=== PATIENT | female | born 1955 | race Caucasian/White ===

== ENCOUNTER → 2016-10-31 16:54 | Outpatient (CLI) | payer MEDICARE ==
[2016-01-27 12:26] VITALS: BMI 29.0
[~2016-10-31 16:54] MED LIST: CEFTIN250 MG PO; COREG 3.1253.125 MG PO; GLIPIZIDE10 MG PO; GLUCOPHAGE1000 MG PO; GLUCOTROL 5 MG T5 MG PO; HYDROCODONE-APA1 TAB PO; NEURONTIN 300300 MG PO; PAXIL20 MG PO; PLAVIX75 MG PO; PLENDIL5 MG PO; PRAVACHOL40 MG PO; PRINIVIL20 MG PO; ROBAXIN500 MG PO; SINEQUAN100 MG PO; TRICOR145 MG PO
== END | disposition home or self-care (01) ==
LOC: D.MAMMO 14:15
DX: Z12.31 Encounter for screening mammogram for malignant neoplasm of breast (principal)

== ENCOUNTER → 2017-04-26 09:34 | Outpatient (CLI) | payer MEDICARE ==
[2016-01-27 12:26] VITALS: BMI 29.0
== END | disposition home or self-care (01) ==
LOC: D.MRI 09:34
DX: L03.116 Cellulitis of left lower limb (principal)

== ENCOUNTER 2017-04-30 11:18 | Inpatient (IN) | payer MEDICARE ==
[~2017-04-30] VITALS: Ht 167.6 cm; Wt 78.2 kg
--- NOTE | 2017-04-30 11:50 | NUR ---
PT RECIEVED TO ROOM 2227 VIA WHEELCHAIR PER DIRECT ADMISSION FROM DR MADRIGAL'S OFFICE. PT AWAKE AND ALERT ORIENTED X 3 DRESSING NOTED TO 2ND DIGIT RIGHT FOOT PIV SITED TO LEFT FORARM 20 GA X 1 STICK SALINE LOCKED TOLERATED WELL.
[2017-04-30] MEDS ORDERED: JANUVIA25 MG PO (11:51)
[2017-04-30 11:59] VITALS: BP 152/79; Ht 167.6 cm; Wt 78.2 kg
[2017-04-30] MEDS ORDERED: TRULICITY0.75 MG/0. SC (12:44)
[2017-04-30] MEDS ORDERED: INVOKANA100 MG PO (12:44)
[2017-04-30 13:42] LABS: BASOPHILS 0.6 % (0-2); EOSINOPHILS 2.7 % (0-7); HEMATOCRIT 43.6 % (36.0-48.0); HEMOGLOBIN 15.3 g/dL (12-16); IMMATURE GRANULOCYTES 0.2 % (0-5); LYMPHOCYTES 22.4 % (15-50); MCH 31.5 pg (26.0-34.0); MCHC 35.1 g/dL (31.0-37.0); MCV 89.9 fL (80.0-100.0); MEAN PLATELET VOLUME 9.7 fL (7.4-10.4); MONOCYTES 6.8 % (2-11); NEUTROPHILS 67.3 % (40-80); PLATELET COUNT 258 10x3/uL (130-400); RBC 4.85 10x6/uL (4.00-5.40); RDW 11.9 % (11.5-14.5)
[2017-04-30 14:10] LABS: ALBUMIN 4.1 g/dL (3.4-5.0); ANION GAP 14.4 mmol/L (8-16); BILIRUBIN - TOTAL 0.4 mg/dL (0.2-1.3); CALCIUM 9.9 mg/dL (8.5-10.1); CARBON DIOXIDE 27.8 mmol/L (21.0-32.0); POTASSIUM - SERUM 4.2 mmol/L (3.5-5.1)
--- NOTE | 2017-04-30 14:39 | NUR ---
PT LEFT SIDE LYING IN BED EYES CLOSED RESPS EVENA ND UNLABORED NO DISTRESS NOTED.
[2017-04-30 16:42] VITALS: BP 152/85
--- NOTE | 2017-04-30 18:20 | NUR ---
PT TOOK NORCO PER ORDER EARLIER FOR PAIN CONTROL EXPRESSED PAIN RELEIF ALSO WOUND CULTURE OBTAINED AND NEW DRESSING APPLIED TO DIABETIC ULCER TO 2ND DIGIT LEFT FOOT
[2017-04-30 20:00] VITALS: BP 164/83
[2017-05-01] VITALS: BP 124/64
--- NOTE | 2017-05-01 00:40 | NUR ---
PATIENT IS RESTING QUIETLY WITH EYES CLOSED. NO SIGNS OF DISTRESS NOTED. BED IN LOWEST POSITION, CALL LIGHT IN REACH. BED RAILS UP X'S 2.
[2017-05-01 04:00] VITALS: BP 147/73
[2017-05-01 06:11] LABS: BASOPHILS 0.4 % (0-2); EOSINOPHILS 2.8 % (0-7); HEMATOCRIT 43.1 % (36.0-48.0); IMMATURE GRANULOCYTES 0.1 % (0-5); LYMPHOCYTES 29.2 % (15-50); MCH 31.2 pg (26.0-34.0); MCHC 34.8 g/dL (31.0-37.0); MCV 89.6 fL (80.0-100.0); MEAN PLATELET VOLUME 10.4 fL (7.4-10.4); MONOCYTES 9.2 % (2-11); NEUTROPHILS 58.3 % (40-80); PLATELET COUNT 251 10x3/uL (130-400); RBC 4.81 10x6/uL (4.00-5.40); RDW 12.1 % (11.5-14.5); WBC 8.1 10x3/uL (4.8-10.8)
[2017-05-01 06:38] LABS: CALCIUM 9.8 mg/dL (8.5-10.1); CARBON DIOXIDE 26.4 mmol/L (21.0-32.0); CREATININE - SERUM 0.9 mg/dL (0.6-1.3); POTASSIUM - SERUM 4.4 mmol/L (3.5-5.1)
--- NOTE | 2017-05-01 08:15 | NUR ---
ASSESSMENT PER FLOW SHEET.PT WITHOUT DISTRESS. DRESSING TO LEFT FOOT IS COMING OFF. SECOND TOE ON LEFT FOOT IS RED WITH SMALL SCABBED AREA NOTED TO OUTER TOE.SITE WITHOUT DRAINAGE.DRESSING REPLACED USING NON STIICK PAD SECURED WITH TAPE.MONITOR FOR NEEDS
[2017-05-01 08:54] VITALS: BP 146/81
[2017-05-01 11:55] VITALS: BP 160/82
[2017-05-01 15:48] VITALS: BP 107/58
--- NOTE | 2017-05-01 18:03 | NUR ---
DENIES NEEDS ND REMAINS WITHOUT CHANGE. CONT PLAN OF CARE
--- NOTE | 2017-05-01 19:50 | NUR ---
REPORT RECEIVED FROM CREW LEADER GLUING NURSE. CALL LIGHT IN REACH.
[2017-05-01 20:00] VITALS: BP 125/66
--- NOTE | 2017-05-01 20:50 | NUR ---
ASSESSMENT COMPLETED. PM MEDS ADMINISTERED WITH NORCO AND ROBAXIN. SCDs APPLIED TO BLE. IV TUBING TAGGED WITH STICKER. [place] HAT PLACED IN BR. FSBS 225. 12 UNITS INSULIN SUBQ TO RIGHT ARM. WAITING ON DOXEPIN FROM PHARMACY. CALL LIGHT IN REACH. WILL CONTINUE WITH PLAN OF CARE.
--- NOTE | 2017-05-01 21:28 | NUR ---
DOXEPIN 50 MG PO. CALL LIGHT IN REACH.
--- NOTE | 2017-05-01 23:29 | NUR ---
NO NEEDS VOICED AT THIS TIME. CALL LIGHT IN REACH.
[2017-05-02] VITALS: BP 118/66
--- NOTE | 2017-05-02 00:20 | NUR ---
VSS. CALL LIGHT IN REACH.
--- NOTE | 2017-05-02 02:00 | NUR ---
PT IN BED WITH NO DISTRESS. RESPIRATIONS EVEN AND UNLABORED. SIDE RAILS X 2. BED LOW. CALL LIGHT IN REACH.
--- NOTE | 2017-05-02 02:15 | NUR ---
TEFLARO IVPB PER ORDER. CALL LIGHT IN REACH.
[2017-05-02 04:00] VITALS: BP 137/70
--- NOTE | 2017-05-02 04:28 | NUR ---
WAS GOING TO GIVE PAIN MED BUT PATIENT IS BACK RESTING WITH EYES CLOSED. RESP EVEN AND UNLABORED. WILL GIVE WHEN SHE WAKES UP.
[2017-05-02 05:31] LABS: BASOPHILS 0.5 % (0-2); EOSINOPHILS 3.8 % (0-7); HEMATOCRIT 42.3 % (36.0-48.0); HEMOGLOBIN 14.5 g/dL (12-16); IMMATURE GRANULOCYTES 0.2 % (0-5); LYMPHOCYTES 31.1 % (15-50); MCH 31.1 pg (26.0-34.0); MCHC 34.3 g/dL (31.0-37.0); MCV 90.8 fL (80.0-100.0); MEAN PLATELET VOLUME 9.9 fL (7.4-10.4); MONOCYTES 7.6 % (2-11); NEUTROPHILS 56.8 % (40-80); PLATELET COUNT 266 10x3/uL (130-400); RBC 4.66 10x6/uL (4.00-5.40); RDW 12.2 % (11.5-14.5); WBC 6.6 10x3/uL (4.8-10.8)
--- NOTE | 2017-05-02 06:20 | NUR ---
NO CHANGES IN INITIAL ASSESSMENT. CALL LIGHT IN REACH. SCDs TO BLE. WILL CONTINUE WITH PLAN OF CARE.
[2017-05-02 06:26] LABS: ANION GAP 15.8 mmol/L (8-16); CALCIUM 9.2 mg/dL (8.5-10.1); CARBON DIOXIDE 25.7 mmol/L (21.0-32.0); POTASSIUM - SERUM 4.5 mmol/L (3.5-5.1)
[2017-05-02 06:47] LABS: CREATININE - SERUM 1.3 mg/dL (0.6-1.3)
--- NOTE | 2017-05-02 07:41 | NUR ---
CM MET WITH PATIENT REGARDING D/C NEEDS AND PLANS. PATIENT STATED SHE IS AND SOMEONE IN HER FAMILY WILL DRIVE HER HOME AT DISCHARGE. PATIENT STATED THERE ARE 3 STEPS WITH RAILS TO ENTER HOME AND NO STAIRS INSIDE. PATIENTS PCP IS DR. MADRIGAL AND PHARMACY IS [facility]. PATIENT STATED SHE IS INDEPENDENT WITH HER CARE AND HAS A CANE AND GLUCOMETER AT HOME. PATIENT STATED SHE CHECKS HER BLOOD SUGAR MAYBE ONCE A WEEK. PATIENT REFUSED HOME HEALTH AT THIS TIME. CM WILL CONTINUE TO FOLLOW PATIENT WITH D/C NEEDS AND PLANS. PCP DR. ROHAN LEVY ON [facility]- [phone] WARNER (DAUGHTER) [phone]
--- NOTE | 2017-05-02 08:00 | NUR ---
ASSESSMENT PER FLOW SHEET.PT WITHOUT DISTRESS.DENIES NEEDS.CALL LIGHT IN REACH
[2017-05-02 08:53] VITALS: BP 142/88
--- NOTE | 2017-05-02 13:30 | NUR ---
IV REMOVED TO LEFT FOREARM TIP INTACT, IV PLACED TO RIGHT FOREARM, ONE STICK 20G,
[2017-05-02 16:35] VITALS: BP 108/65
--- NOTE | 2017-05-02 18:25 | NUR ---
REMAINS WITHOUT CHANGE.CONT PLAN OF CARE
--- NOTE | 2017-05-02 18:26 | NUR ---
REMAINS WITHOUT CHANGE.CONT PLAN OF CARE
--- NOTE | 2017-05-02 19:30 | NUR ---
RECIEVED SHIFT REPORT. PT IS LYING IN BED. ALERT AND ORIENTED AND ABLE TO VERBALIZE NEEDS. IV IS PATENT AND FLUIDS ARE RUNNING PER ORDER. SCD'S PLACED AT THIS TIME. PT IS ABLE TO TURN SELF IN BED FOR COMFORT AND SKIN CARE WHEN INSTRUCTED TO DO SO. PT DENIES ANY PAIN AT THIS TIME. NO NEEDS ARE VERBALIZED AT THIS TIME. WILL CONTINUE TO MONITOR. SIDE RAILS ARE UP X 2. BED IS IN LOWEST POSITION. BED ALARM IS ON FOR SAFETY. CALL LIGHT IS WITHIN REACH.
--- NOTE | 2017-05-02 19:35 | NUR ---
RECIEVED SHIFT REPORT. PT IS LYING IN BED. ALERT AND ORIENTED AND ABLE TO VERBALIZE NEEDS. IV IS PATENT AND SALINE LOC AT THIS TIME. PT IS AMBULATORY BUT WAS INSTRUCTED TO CALL FOR ANY ASSISTANCE NEEDED. DRESSING TO LEFT SECOND TOE C/D/I. PT STATES PAIN IS 7/10. SCD'S ON. NO NEEDS ARE VERBALIZED AT THIS TIME. WILL CONTINUE TO MONITOR. SIDE RAILS ARE UP X 2. BED IS IN LOWEST POSITION. CALL LIGHT IS WITHIN REACH.
[2017-05-02 20:00] VITALS: BP 98/56
--- NOTE | 2017-05-02 21:15 | NUR ---
SHIFT ASSESSMENT COMPLETED. NIGHT MEDS GIVEN WITH NO PROBLEMS. NO NEEDS ARE VOICED. WILL MONITOR. SIDE RAILS X 2. BED LOW. BED ALARM ON. CALL LIGHT IN REACH.
--- NOTE | 2017-05-02 22:02 | NUR ---
SHIFT ASSESSMENT COMPLETED. NIGHT MEDS GIVEN WITH NO PROBLEMS. PT RECIEVED 8 UNITS INSULIN PER SLIDING SCALE FOR WPLP=638. PT C/O PAIN 03/26. ADMINISTERED PRESCRIBED PRN NORCO PER ORDER. DENIES FURTHER NEEDS. WILL MONITOR. SIDE RAILS X 2. BED LOW. CALL LIGHT IN REACH.
[2017-05-03] VITALS: BP 101/52
[2017-05-03 04:00] VITALS: BP 135/61
[2017-05-03 05:42] LABS: BASOPHILS 0.5 % (0-2); HEMATOCRIT 41.9 % (36.0-48.0); HEMOGLOBIN 14.2 g/dL (12-16); IMMATURE GRANULOCYTES 0.1 % (0-5); LYMPHOCYTES 26.7 % (15-50); MCH 31.1 pg (26.0-34.0); MCHC 33.9 g/dL (31.0-37.0); MCV 91.9 fL (80.0-100.0); MEAN PLATELET VOLUME 10.1 fL (7.4-10.4); NEUTROPHILS 60.7 % (40-80); PLATELET COUNT 268 10x3/uL (130-400); RBC 4.56 10x6/uL (4.00-5.40); RDW 12.2 % (11.5-14.5); WBC 7.5 10x3/uL (4.8-10.8)
[2017-05-03 06:24] LABS: ANION GAP 11.6 mmol/L (8-16); CARBON DIOXIDE 28.7 mmol/L (21.0-32.0); CREATININE - SERUM 1.3 mg/dL (0.6-1.3); POTASSIUM - SERUM 4.3 mmol/L (3.5-5.1)
--- NOTE | 2017-05-03 07:45 | NUR ---
PT ASSESSMENT COMPLETE AWAKE AND ALERT ORIENTED X 3 LUNGS CLEAR BILATERALLY NO ACUTE DISTRES SNTOED HAS DRESSIN GNOTED TO 2ND DIGIT RIGHT FOOT FOR DIABETIC ULCER NOTED SALINE LOCK NOTED TO RIGHT FORARM. UP AD CIARA DENIES PAIN AT THIS TIME
[2017-05-03 08:55] VITALS: BP 121/62
[2017-05-03 12:23] VITALS: BP 102/50
--- NOTE | 2017-05-03 14:38 | NUR ---
PT AOX4 RESP EVEN AND NONLABORED PT DENIES NEEDS AT THIS TIME IV TO RIGHT FOREARM PATENT AND INTACT AT THIS TIME SRX2 BED AT LOWEST SETTING CALL LIGHT WITHIN REACH WILL CONTINUE TO MONITOR
[2017-05-03 16:49] VITALS: BP 101/54
--- NOTE | 2017-05-03 18:59 | NUR ---
PT RESTING IN BED WITH EYES CLOSED
[2017-05-03 20:00] VITALS: BP 133/71
--- NOTE | 2017-05-03 23:05 | NUR ---
PATIENT IS RESTING QUIETLY WITH EYES CLOSED. NO SIGNS OF DISTRESS NOTED. BED IN LOWEST POSITION, CALL LIGHT IN REACH. BED RAILS UP X'S 2.
[2017-05-04] VITALS (7 sets, daily range): BP systolic 132–193; BP diastolic 58–85
[2017-05-04 05:05] LABS: BASOPHILS 0.6 % (0-2); EOSINOPHILS 4.6 % (0-7); HEMOGLOBIN 13.5 g/dL (12-16); IMMATURE GRANULOCYTES 0.2 % (0-5); LYMPHOCYTES 31.9 % (15-50); MCH 30.4 pg (26.0-34.0); MCHC 32.9 g/dL (31.0-37.0); MCV 92.3 fL (80.0-100.0); MEAN PLATELET VOLUME 9.9 fL (7.4-10.4); MONOCYTES 6.7 % (2-11); PLATELET COUNT 276 10x3/uL (130-400); RBC 4.44 10x6/uL (4.00-5.40); RDW 11.9 % (11.5-14.5); WBC 6.6 10x3/uL (4.8-10.8)
[2017-05-04 05:33] LABS: ANION GAP 8.5 mmol/L (8-16); CALCIUM 9.1 mg/dL (8.5-10.1); CARBON DIOXIDE 32.3 mmol/L (21.0-32.0); CREATININE - SERUM 1.3 mg/dL (0.6-1.3); POTASSIUM - SERUM 4.8 mmol/L (3.5-5.1)
--- NOTE | 2017-05-04 07:45 | NUR ---
PT AWAKE AND ALERT ORIENTED X 3 LUNGS CLEAR BILATERAL DIABETIC ULCER WITH DRESSING INTACT NOTED TO 2ND TOE LEFT FOOT. ALL ADLS PER STAFF ASSIST ABLE TO MAKE NEEDS KNOWN TO STAFF.
--- NOTE | 2017-05-04 15:30 | NUR ---
PT RESTING IN BED WITH NO DISTRESS NOTED CALL LIGHT STEFF DAUGHTER HERE MOST OF THE DAY
--- NOTE | 2017-05-04 18:54 | NUR ---
PT SITTING UP IN BED SPOUSE AT BEDSIDE. NO DISTRESS NOTED
--- NOTE | 2017-05-05 03:08 | NUR ---
PATIENT IS ON ROOM AIR. RESTING QUIETLY WITH EYES CLOSED. NO SIGNS OF DISTRESS NOTED. BED IN LOWEST POSITION, CALL LIGHT IN REACH. BED RIALS UP X'S 2. HOB 30 DEGREES.
[2017-05-05 03:58] VITALS: BP 176/82
--- NOTE | 2017-05-05 07:30 | NUR ---
ASSESSMEN TPER FLOW SHEET.PT WITHOUT DISTRESS.CALL LIGHT IN REACH
[2017-05-05 08:01] LABS: BASOPHILS 0.7 % (0-2); EOSINOPHILS 3.4 % (0-7); HEMATOCRIT 41.5 % (36.0-48.0); HEMOGLOBIN 14.1 g/dL (12-16); IMMATURE GRANULOCYTES 0.2 % (0-5); LYMPHOCYTES 24.7 % (15-50); MCH 31.1 pg (26.0-34.0); MCV 91.4 fL (80.0-100.0); MEAN PLATELET VOLUME 10.2 fL (7.4-10.4); MONOCYTES 8.1 % (2-11); NEUTROPHILS 62.9 % (40-80); PLATELET COUNT 264 10x3/uL (130-400); RBC 4.54 10x6/uL (4.00-5.40); WBC 5.8 10x3/uL (4.8-10.8)
[2017-05-05 08:27] LABS: ANION GAP 11.4 mmol/L (8-16); CALCIUM 9.1 mg/dL (8.5-10.1); CARBON DIOXIDE 27.7 mmol/L (21.0-32.0); POTASSIUM - SERUM 4.1 mmol/L (3.5-5.1)
[2017-05-05 09:02] VITALS: BP 146/81
[2017-05-05 12:44] VITALS: BP 106/58
[2017-05-05] MEDS ORDERED: AMPICILLIN TRI500 MG PO (14:49)
[2017-05-05] MEDS ORDERED: CIPRO500 MG PO (14:49)
[2017-05-05 15:36] VITALS: BP 164/74
--- NOTE | 2017-05-05 19:25 | NUR ---
DISCHARGE INSTRUCTIONS,STATES UNDERSTANDING.IV DCD WITH CATH INTACT.LEFT UNIT VIA WHEELCHAIR.
== END 2017-05-05 19:26 | disposition home or self-care (01) | DRG 603 ==
LOC: D.MS 11:18 → OBSVTIME 11:19 → D.MS 05-01 11:16
PROVIDERS: Emergency Medicine; ADMIT Family Medicine
DX: L03.116 Cellulitis of left lower limb (principal); E11.65 Type 2 diabetes mellitus with hyperglycemia; Z86.73 Personal history of transient ischemic attack (TIA), and cerebral infarction without residual deficits; E78.1 Pure hyperglyceridemia; I65.21 Occlusion and stenosis of right carotid artery

== ENCOUNTER 2018-11-11 06:53 | Inpatient (IN) | payer MEDICARE, MEDICAID ==
[~2018-11-11] VITALS: Ht 167.6 cm; Wt 71.4 kg
[~2018-11-11 06:53] MED LIST changes: +AMPICILLIN TRI500 MG PO; +CIPRO500 MG PO; +INVOKANA100 MG PO; +JANUVIA25 MG PO; +TRULICITY0.75 MG/0. SC
--- NOTE | 2018-11-11 07:25 | NUR ---
PT BLOOD GLUCOSE 142
[2018-11-11 07:31] LABS: BASOPHILS 0.6 % (0-2); EOSINOPHILS 5.3 % (0-7); HEMATOCRIT 37.2 % (36.0-48.0); HEMOGLOBIN 12.3 g/dL (12-16); IMMATURE GRANULOCYTES 0.2 % (0-5); LYMPHOCYTES 30.3 % (15-50); MCH 29.9 pg (26.0-34.0); MCHC 33.1 g/dL (31.0-37.0); MCV 90.3 fL (80.0-100.0); MEAN PLATELET VOLUME 9.9 fL (7.4-10.4); MONOCYTES 7.1 % (2-11); NEUTROPHILS 56.5 % (40-80); RBC 4.12 10x6/uL (4.00-5.40); RDW 12.8 % (11.5-14.5); WBC 6.4 10x3/uL (4.8-10.8)
[2018-11-11 07:36] LABS: PLATELET COUNT 194 10x3/uL (130-400)
[2018-11-11 07:43] LABS: ALBUMIN 3.5 g/dL (3.4-5.0); ALKALINE PHOSPHATASE 47 U/L (46-116); ALT (SGPT) 29 U/L (10-68); CALC OSMOLALITY 289 mosm/kg (275-300); CALCIUM 9.1 mg/dL (8.5-10.1); CHLORIDE - SERUM 107 mmol/L (98-107); CREATININE - SERUM 0.9 mg/dL (0.6-1.3); GLUCOSE 148 mg/dL (74-106); POTASSIUM - SERUM 4.4 mmol/L (3.5-5.1); PROTEIN - SERUM 6.9 g/dL (6.4-8.2); SODIUM 142 mmol/L (136-145); UREA NITROGEN 23 mg/dL (7-18); eGFR NON AFRICAN AMERICAN 67 mL/min (90-120)
[2018-11-11 07:54] LABS: CKMB 1.1 U/L (0.0-3.6); CREATINE KINASE 69 UL (21-215); MAGNESIUM - SERUM 1.8 mg/dL (1.8-2.4); THYROID STIMULATING HORMONE 2.21 uIU/mL (0.36-3.74); TROPONIN-I < 0.017 ng/mL (0.000-0.060)
[2018-11-11 07:57] LABS: APTT 29.5 SECONDS (22.8-39.4); INR 1.01 (0.85-1.17); PROTIME 12.8 SECONDS (11.6-15.0)
--- NOTE | 2018-11-11 08:20 | NUR ---
STROKE [facility] # [id number]
[2018-11-11 08:29] VITALS: BP 180/72
[2018-11-11 11:30] VITALS: BP 192/94
--- NOTE | 2018-11-11 12:47 | NUR ---
CALLED DR QUEZADA ABOUT PTS BLOOD PRESSURE. HE ORDERED BP MEDS TO BE GIVEN.
[2018-11-11] MEDS ORDERED: LISINOPRIL2.5 MG PO (13:00)
--- NOTE | 2018-11-11 13:08 | NUR ---
RECEIVED PT TO ROOM 2111 VIA WHEELCHAIR, PT ALBE TO AMBULATE FROM WHEELCHAIR TO BED WITH NO PROBLEMS. ORIENTED PT TO ROOM AND CALL LIGHT, WILL ASSESS PT AND START PLAN OF CARE.
[2018-11-11] MEDS ORDERED: ZANAFLEX4 MG PO (13:16)
[2018-11-11 13:33] VITALS: BP 146/102; BMI 25.2
[2018-11-11 14:55] VITALS: Ht 167.6 cm; Wt 71.4 kg
[2018-11-11 17:57] VITALS: BP 135/69
[2018-11-11 18:27] LABS: ERYTHROCYTE SEDIMENTATION RATE 7 mm/hr (0-30)
--- NOTE | 2018-11-11 19:19 | NUR ---
RECEIVED REPORT, WILL ASSUME CARE OF PT, DENIES ANY NEEDS AT THIS TIME, VISITING WITH FAMILY, BED IS LOW, SRX2, CALL LIGHT IN REACH, WILL CONTINUE PLAN OF CARE
[2018-11-11 21:43] VITALS: BP 168/82
[2018-11-12 01:07] VITALS: BP 183/95
[2018-11-12 05:41] LABS: BASOPHILS 0 % (0-2); EOSINOPHILS 0 % (0-7); HEMATOCRIT 39.7 % (36.0-48.0); HEMOGLOBIN 13.5 g/dL (12-16); IMMATURE GRANULOCYTES 0.2 % (0-5); LYMPHOCYTES 10.9 % (15-50); MCH 30.2 pg (26.0-34.0); MCV 88.8 fL (80.0-100.0); MEAN PLATELET VOLUME 9.9 fL (7.4-10.4); MONOCYTES 2.4 % (2-11); NEUTROPHILS 86.5 % (40-80); RBC 4.47 10x6/uL (4.00-5.40); RDW 12.6 % (11.5-14.5)
[2018-11-12 05:57] VITALS: BP 154/78
[2018-11-12 06:08] LABS: PLATELET COUNT 311 10x3/uL (130-400); WBC 9.4 10x3/uL (4.8-10.8)
[2018-11-12 06:09] LABS: ANION GAP 15.6 mmol/L (8-16); CALCIUM 9.6 mg/dL (8.5-10.1); CARBON DIOXIDE 25.7 mmol/L (21.0-32.0); CREATININE - SERUM 0.9 mg/dL (0.6-1.3); POTASSIUM - SERUM 4.3 mmol/L (3.5-5.1)
--- NOTE | 2018-11-12 07:10 | NUR ---
RECEIVED BEDSIDE SHIFT REPORT. ASSUMED CARE OF PATIENT. CALL LIGHT WITHIN REACH. PATIENT SITTING TO SIDE OF BED. DENIES ANY NEEDS AT THIS TIME. NO DISTRESS. PATIENT STATES HER FAMILY IS ON THE WAY TO SEE HER AND THEY ARE BRINGING EVERYTHING THAT SHE THINKS SHE NEEDS. NO DISTRESS.
[2018-11-12 08:19] VITALS: BP 153/90
--- NOTE | 2018-11-12 11:49 | NUR ---
FSBS 267. 6 UNITS HUMULIN ADMINISTERED PER SLIDING SCALE. NO DISTRESS. FAMILY AT BEDSIDE WITH PATIENT.
[2018-11-12 12:17] VITALS: BP 155/76
--- NOTE | 2018-11-12 13:24 | NUR ---
SPOKE WITH PATIENT ABOUT SCD'S, PATIENT REFUSED SCDS AT THIS TIME.
--- NOTE | 2018-11-12 14:22 | NUR ---
CALLED AND SPOKE TO SANJU TO REPORT THAT WAS HERE THIS AM AND SAW PATIENT ABOUT 0930 BUT HE HAS NOT PUT A NOTE IN YET. SANJU ASKED WHAT SAID AND I TOLD SANJU THAT THE PATIETN SAID, DOES NOT FEEL LIKE IT IS A MASS BUT RATHER AN INFECTION. SANJU ASKED WHAT HE IS GOING TO DO ABOUT THE BRAIN INFECTION, THIS CUSTOMER COUNTER ASSOCIATE DOES NOT KNOW BECAUSE HE DID NOT SPEAK TO ME NOR HAS HE PUT A NOTE IN, HOWEVER THE PATIENT STATES THAT THE NEUROLOGIST FROM THE TELECONFERENCE LAST NIGHT STATED HE WOULD PERSONALLY BE IN THIS FACILITY TODAY TO REVEIW ALL OF HER IMAGES AND DECIDE WHAT THE TREATMENT WOULD BE. THIS CUSTOMER COUNTER ASSOCIATE IS NOT SURE IF IS WAITING TO CONSULT WITH THE OTHER NEUROLOGIST BEFORE HE PUTS ON NOTE IN OR NOT.
[2018-11-12 16:26] VITALS: BP 158/80
--- NOTE | 2018-11-12 16:47 | NUR ---
FSBS 248. 4 UNITS HUMULIN ADMINISTERED PER SLIDING SCALE.
[2018-11-12 17:06] LABS: APPEARANCE CLEAR (CLEAR); BILIRUBIN NEGATIVE (NEGATIVE); COLOR YELLOW (YELLOW); GLUCOSE 1000 mg/dL (NEGATIVE); KETONE NEGATIVE (NEGATIVE); NITRITE NEGATIVE (NEGATIVE); PROTEIN TRACE mg/dL (NEGATIVE); UROBILINOGEN NORMAL (NORMAL)
--- NOTE | 2018-11-12 18:36 | NUR ---
PATIENT IN SHOWER AT THIS TIME. LINEN CHANGE PROVIDED. ASSISTING PATIENT IN SHOWER AND DENIED NEED FOR NURSING STAFF. NO DISTRESS.
--- NOTE | 2018-11-12 19:50 | NUR ---
INITIAL ASSESSMENT COMPLETED - PT A/O X4. PERRLA. R SIDED FACIAL DROOPING NOTED. SLIGHT R SIDED WEAKNESS. PIV PATENT IN R WRIST, C/D/I. PT STATES "I DON'T KNOW WHY THEY PUT ME ON STEROIDS, I STAY UP FOR 3 DAYS." EDUCATED PT THAT STEROIDS ARE NEEDED FOR DISEASE PROCESS. PT VERBALIZED UNDERSTANDING. WCTM AND FOLLOW POC. CL IN REACH, SR UP X2, BED IN LOWEST POSITION.
[2018-11-13] VITALS: BP 167/78; BP 196/81
--- NOTE | 2018-11-13 01:00 | NUR ---
TO PT ROOM VIA HEATHER MOHR. BP 196/81. PT VERY SLEEPY. NOTIFIED DR. JONES. KAREN STATES "WE'RE NOT GOING TO DO ANYTHING." CL IN REACH, SR UP X2, BED IN LOWEST POSITION.
[2018-11-13 04:00] VITALS: BP 180/98
[2018-11-13 06:45] LABS: BASOPHILS 0.1 % (0-2); EOSINOPHILS 0 % (0-7); HEMATOCRIT 40.5 % (36.0-48.0); HEMOGLOBIN 13.7 g/dL (12-16); IMMATURE GRANULOCYTES 0.2 % (0-5); LYMPHOCYTES 7.8 % (15-50); MCHC 33.8 g/dL (31.0-37.0); MCV 88.6 fL (80.0-100.0); MEAN PLATELET VOLUME 10.1 fL (7.4-10.4); MONOCYTES 2.1 % (2-11); NEUTROPHILS 89.8 % (40-80); PLATELET COUNT 338 10x3/uL (130-400); RBC 4.57 10x6/uL (4.00-5.40); RDW 12.7 % (11.5-14.5)
[2018-11-13 06:53] LABS: CALC OSMOLALITY 287 mosm/kg (275-300); CALCIUM 9.5 mg/dL (8.5-10.1); CARBON DIOXIDE 24.2 mmol/L (21.0-32.0); CHLORIDE - SERUM 105 mmol/L (98-107); CREATININE - SERUM 0.8 mg/dL (0.6-1.3); GLUCOSE 195 mg/dL (74-106); POTASSIUM - SERUM 4.2 mmol/L (3.5-5.1); SODIUM 140 mmol/L (136-145); UREA NITROGEN 23 mg/dL (7-18); eGFR NON AFRICAN AMERICAN 77 mL/min (90-120)
[2018-11-13 07:01] LABS: WBC 13.9 10x3/uL (4.8-10.8)
--- NOTE | 2018-11-13 07:10 | NUR ---
REPORT RECIEVED FROM MANAGER POST. PATIENT LAYING IN BED ON BACK WITH EYES CLOSED AND BREATHING EVENLY. WILL CONTINUE WITH PLAN OF CARE. SR UP X 2 BED IN LOW POSITION AND CALL LIGHT IN REACH.
[2018-11-13 07:59] VITALS: BP 195/100
--- NOTE | 2018-11-13 08:00 | NUR ---
PATIENT AWAKE, ALERT AND ORIENTED X 4. PATIENT GIVEN MEDS PER MAR. PATIENT DENIES ANY NEEDS OR PAIN. WILL CONTINUE TO MONITOR.
--- NOTE | 2018-11-13 11:15 | NUR ---
PATIENT RETURNED FROM MRI. BACK IN BED. VSS. PATIENT DENIES ANY PAIN OR NEEDS. TELEMETRY RESTARTED. WILL CONTINUE TO MONITOR PATIENT. SR UP X 2 BED IN LOW POSITION AND CALL LIGHT IN REACH.
[2018-11-13 11:21] LABS: CA 27-29 29.8 U/mL (0.0-38.6)
[2018-11-13 11:25] VITALS: BP 127/62
[2018-11-13 13:15] LABS: ALPHA FETOPROTEIN -(TUMOR MRK) 3.1 ng/mL (0.0-8.3); CA125 8.4 U/mL (0.0-38.1); CEA 3.2 ng/mL (0.0-4.7)
--- NOTE | 2018-11-13 15:08 | NUR ---
PATIENT TO MRI VIA AND MRI STAFF. PATIENT IS STABLE AND VSS.
--- NOTE | 2018-11-13 15:11 | NUR ---
PATIENT SITTING UP IN BED TALKING ON PHONE. WILL CONTINUE TO MONITOR.
[2018-11-13 15:16] VITALS: BP 155/75
--- NOTE | 2018-11-13 15:59 | NUR ---
PATIENT LAYING ON LEFT SIDE WITH EYES CLOSED AND BREATHING EVENLY. WILL CONTINUE TO MONITOR.
--- NOTE | 2018-11-13 17:30 | NUR ---
PATIENT SITTING UP IN BED EATING SUPPER. FAMILY AT BEDSIDE. MEDS GIVEN PER MAR ORDER. PATIENT DENIES ANY NEEDS OR PAIN. WILL CONTINUE TO MONITOR. SR UP X 2 BED IN LOW POSTION AND CALL LIGHT IN REACH.
--- NOTE | 2018-11-13 19:50 | NUR ---
INITIAL ASSESSMENT COMPLETED - PT SITTING UP IN BED, A/O X4. FAMILY AT BEDSIDE AT THIS TIME. VSS, HR 74 SR, RR EVEN AND UL ON RA. R WRIST PIV SL, PATENT, C/D/I. L FA PIV SL, PATENT, C/D/I. DENIES ANY PAIN OR DISCOMFORT AT THIS TIME. NO FURTHER NEEDS NOTED. CL IN REACH, SR UP X2, BED IN LOWEST POSITION.
--- NOTE | 2018-11-13 20:00 | NUR ---
RECALLED DR. BERGMAN WORDS FROM PHONE CALL ABOUT PT ON 11/12 WHEN HE STATED "WE SHOULD NOT BE GIVING LISINOPRIL TO PT'S WITH CEREBRAL EDEMA ANYWAYS," BEFORE GIVING PT PM LISINOPRIL DOSE. NOTIFIED SRINIVAS PHARMACIST. LISINOPRIL IS A PRECAUTION IN PT'S WITH CEREBRAL VASCULAR DISEASE, PER SRINIVAS PHARMACIST. NOTIFIED DR. 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 GIVE HER THE LISINOPRIL." GAVE PT LISINOPRIL PER MD ORDER. WCTM AND FOLLOW POC.
[2018-11-13 20:30] VITALS: BP 162/87
--- NOTE | 2018-11-13 23:59 | NUR ---
TO PT ROOM VIA DRIVER/MERCHANDISER. DRIVER/MERCHANDISER STATES TEMP 100.6. ADMINISTERED TYLENOL PRN FOR PAIN AND TEMP. PAIN 9/10. WILL REASSESS TEMP AND PAIN IN 30 MIN. NO OTHER NEEDS NOTED AT THIS TIME. CL IN REACH, SR UP X2, BED IN LOWEST POSITION.
--- NOTE | 2018-11-14 00:02 | NUR ---
TO PT ROOM VIA PRESCHOOL LEAD TEACHER. PT BP 182/92. NOT TREATING BP MORE THAN WHAT IS ON THE MAR PER DR. JONES. PAIN 05/27. ADMINISTERED TYLENOL PRN FOR PAIN PT STATES SHE TAKES THIS AT HOME FOR HER CHRONIC BACK PAIN. NO OTHER NEEDS NOTED AT THIS TIME. CL IN REACH, SR UP X2, BED IN LOWEST POSITION.
[2018-11-14 00:30] VITALS: BP 182/92
[2018-11-14 05:29] VITALS: BP 187/90
[2018-11-14 06:10] LABS: BASOPHILS 0 % (0-2); EOSINOPHILS 0 % (0-7); HEMATOCRIT 41.1 % (36.0-48.0); IMMATURE GRANULOCYTES 0.3 % (0-5); LYMPHOCYTES 11.6 % (15-50); MCH 30.4 pg (26.0-34.0); MCHC 34.1 g/dL (31.0-37.0); MCV 89.2 fL (80.0-100.0); MEAN PLATELET VOLUME 10.1 fL (7.4-10.4); MONOCYTES 2.8 % (2-11); NEUTROPHILS 85.3 % (40-80); PLATELET COUNT 331 10x3/uL (130-400); RBC 4.61 10x6/uL (4.00-5.40); RDW 12.6 % (11.5-14.5); WBC 10.6 10x3/uL (4.8-10.8)
[2018-11-14 06:21] LABS: ANION GAP 14.3 mmol/L (8-16); CALCIUM 9.3 mg/dL (8.5-10.1); CARBON DIOXIDE 26.8 mmol/L (21.0-32.0); CREATININE - SERUM 0.9 mg/dL (0.6-1.3); POTASSIUM - SERUM 4.1 mmol/L (3.5-5.1)
--- NOTE | 2018-11-14 07:45 | NUR ---
ROUNDING DONE WITH PATIENT LAYING ON RIGHT SIDE, AROUSES EASILY. DENIES NEEDS. ON HEART MONITOR SHOWING SR, HR 72. ON ROOM AIR. RIGHT WRIST PIV AND LEFT FA PIV BOTH SEEN WITH SALINE LOCK. ON EP, K+ IS 4.1. POC GLUCOSE IS 181, DOES NOT WANT TO TAKE INSULIN UNTIL BREAKFAST TRAY IS HERE. WILL MONITOR FOR NEEDS.
[2018-11-14 07:53] VITALS: BP 160/87
[2018-11-14 12:23] VITALS: BP 143/71
--- NOTE | 2018-11-14 12:45 | NUR ---
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 REMOVED WITH CATH TIP INTACT.
[2018-11-14 14:47] VITALS: BP 145/64
[2018-11-14 20:00] VITALS: BP 158/82
--- NOTE | 2018-11-14 20:00 | NUR ---
INITIAL ASSESSMENT COMPLETE - PT A/O X4. VSS. RR EVEN AND UL. L FA PIV PATENT, SL, C/D/I. PT STATES SHE WOULD LIKE HER NORCO WITH HER PM MEDS. PAIN 05/27. ADMINISTERED PAIN MEDS PER MD ORDER. NO OTHER NEEDS NOTED AT THIS TIME. CL IN REACH, SR UP X2, BED IN LOWEST POSITION.
[2018-11-15] VITALS: BP 171/80
--- NOTE | 2018-11-15 02:45 | NUR ---
TO PT ROOM FOR STEROID. PT AROUSES SLOWLY TO NOISE AND SEEMS STARTLED EVERYTIME SHE IS AWAKEN. ADMINISTERED STEROID TO L FA PIV, PIV PATENT, C/D/I, NO PAIN OR DISCOMFORT NOTED AT THE SITE. NO OTHER NEEDS NOTED AT THIS TIME. CL IN REACH, SR UP X2, BED IN LOWEST POSITION.
[2018-11-15 04:50] VITALS: BP 174/92
[2018-11-15 05:45] LABS: BASOPHILS 0 % (0-2); EOSINOPHILS 0 % (0-7); HEMATOCRIT 43.2 % (36.0-48.0); HEMOGLOBIN 14.6 g/dL (12-16); IMMATURE GRANULOCYTES 0.2 % (0-5); LYMPHOCYTES 13.9 % (15-50); MCH 30.1 pg (26.0-34.0); MCHC 33.8 g/dL (31.0-37.0); MCV 89.1 fL (80.0-100.0); MONOCYTES 5.3 % (2-11); NEUTROPHILS 80.6 % (40-80); PLATELET COUNT 274 10x3/uL (130-400); RBC 4.85 10x6/uL (4.00-5.40); RDW 12.4 % (11.5-14.5); WBC 12.2 10x3/uL (4.8-10.8)
[2018-11-15 05:56] LABS: ANION GAP 13.6 mmol/L (8-16); CALCIUM 9.5 mg/dL (8.5-10.1); CARBON DIOXIDE 26.4 mmol/L (21.0-32.0); CREATININE - SERUM 0.9 mg/dL (0.6-1.3)
--- NOTE | 2018-11-15 07:25 | NUR ---
ROUNDING DONE WITH PATIENT LAYING ON LEFT SIDE, RESTING EYES CLOSED. RESP ARE EVEN. HOB AT 35 DEGREES. ON HEART MONITOR SHOWING SB, HR 56. LEFT FA PIV SEEN WITH SALINE LOCK. ON EP, K+ IS 5.0.
[2018-11-15 08:14] VITALS: BP 145/72
--- NOTE | 2018-11-15 11:38 | NUR ---
Rehab Prescreening Consult recieved and the chart has been reviewed. She is [employer] managed medicare and will require a preauth. PT eval'd her yesterday and stated she had no PT needs, and signed off. To meet medicare criteria a patient must have the need for a minimum of two therapies. With PT signing off a request for ARU will not be submitted. Discussed with Tom. Tanna Portillo RN Clinical Liaison, Rehab
[2018-11-15 12:09] VITALS: BP 149/76
[2018-11-15 15:02] VITALS: BP 157/77
--- NOTE | 2018-11-15 16:49 | MORECARE ---
CASE MANAGEMENT DISCHARGE SUMMARY PATIENT: CORNELIO SOLORIO UNIT: [id number] ADM DATE: 11/11/18 AGE: 63 : 57 SEX: F ROOM/BED: D.3219 AUTHOR: MOSES,DOC PHYSICIAN: REFERRING PHYSICIAN: DONNA JONES MD DATE OF SERVICE: 11/15/18 Discharge Plan Patient Name: CORNELIO SOLORIO Facility: [facility]:[place] : 1955 Planned Disposition: Home Anticipated Discharge Date: Discharge Date: Expected LOS: Initial Reviewer: [email or web address] Initial Review Date: 11/11/2018 Generated: 11/15/18 5:49 pm Comments DCP- Discharge Planning Updated by [id number]: Sadi Daily on 11/15/18 3:[address] Patient Name: CORNELIO SOLORIO Admission Status: ER Accout number: [id number] Admission Date: 11-11-2018 : 1955 Admission Diagnosis:EDEMA, UNSPECIFIED Attending: DONNA JONES Current LOS: 4 Anticipated DC Date: Planned Disposition: Home Primary Insurance: [employer]ARE ADV Discharge Planning Comments: CM RECEIVED ORDER FOR INPATIENT REHAB PRESCREENING. CM MET WITH PT IN ROOM TO DISCUSS DISCHARGE PLANNING AND NEEDS. PT REPORTS LIVING AT HOME INDEPENDENTLY WITH SPOUSE. PT HAS 4 PRONG CANE WITH NO MEDICAL EQUIPMENT PROVIDER PREFERENCE. PT HAS NO OUTSIDE SERVICES ASSISTING IN THE HOME. CM DISCUSSED AVAILABILITY OF HOME HEALTH, REHAB SERVICES AND MEDICAL EQUIPMENT. PT DENIES DISCHARGE NEEDS INITIALLY, SHE DOES NOT WANT TO GO TO REHAB, REPORTS HER SPOUSE WILL PICK HER UP FOR DISCHARGE HOME. IMPORTANT MESSAGE FROM MEDICARE PROVIDED AND EXPLAINED. CM REVIEWED CHART, PT WALKING 100 FEET WITHOUT ASSISTANCE OR DEVICE, THERAPY HAS SIGNED OFF REPORTING NO SKILLED NEED. PT REPORTS IF ANYTHING, SHE WOULD GO TO OUTPATIENT THERAPY. CM CALLED SHREYAS OF [facility] TO SEE IF PT'S INSURANCE WILL COVER THE SERVICES. CM TO CONTINUE TO FOLLOW AND ASSIST. Charge Account Clerk: Sadi Daily DCPIA - Discharge Planning Initial Assessment Updated by [id number]: Sadi Daily on 11/15/18 4:46 pm * Is the patient Alert and Oriented? Yes * How many steps to enter\exit or inside your home? * PCP DR. MADRIGAL * Pharmacy [facility] [address] * Preadmission Environment Home with Family * ADLs Independent * Equipment Cane * Other Equipment NO MEDICAL EQUIPMENT PROVIDER PREFERENCE * List name and contact numbers for known caregivers / representatives who currently or will assist patient after discharge: WARNER JEFFRIES, DAUGHTER, * Verbal permission to speak to the caregivers and representatives has been obtained from the patient. N/A * Community resources currently utilized None * Please name any agencies selected above. NONE * Additional services required to return to the preadmission environment? No * Can the patient safely return to the preadmission environment? Yes * Has this patient been hospitalized within the prior 30 days at any hospital? No Coverage Notice Reviewer: [id number] Cecile Daily Notice Issued Date-Time: 11/15/2018 11:45 Notice Type: IM Discharge Notice Notice Delivered To: Patient Relationship to Patient: Supervisor Telephone Information Name: Delivery Method: HAND - Hand Delivered Angela Days: Prior Verbal Notification: Recipient Understood Notice: Yes Recipient Signature: Yes Med Rec Note Co-signed by Attending: Coverage Notice Comment: Patient Name: CORNELIO SOLORIO Page [id number] at 1649 All edits/amendments must be made on the electronic document DICTATION DATE: 11/15/181648 ULTRASONIC SEAMING MACHINE OPERATOR: FAITH 11/15/181648 RPT#: [id number] DC DATE: STATUS: ADM IN [facility] [address] [place] [address] END OF REPORT
--- NOTE | 2018-11-15 17:41 | MORECARE ---
CASE MANAGEMENT DISCHARGE SUMMARY PATIENT: CORNELIO SOLORIO UNIT: [id number] ADM DATE: 11/11/18 AGE: 63 : 57 SEX: F ROOM/BED: D.1244 AUTHOR: MOSES,DOC PHYSICIAN: REFERRING PHYSICIAN: DONNA JONES MD DATE OF SERVICE: 11/15/18 Discharge Plan Patient Name: CORNELIO SOLORIO Facility: [facility]:[place] : 1955 Planned Disposition: Home Anticipated Discharge Date: Discharge Date: Expected LOS: Initial Reviewer: [email or web address] Initial Review Date: 11/11/2018 Generated: 11/15/18 6:41 pm Comments DCP- Discharge Planning Updated by [id number]: Sadi Daily on 11/15/18 3:[address] Patient Name: CORNELIO SOLORIO Admission Status: ER Accout number: [id number] Admission Date: 11-11-2018 : 1955 Admission Diagnosis:EDEMA, UNSPECIFIED Attending: DONNA JONES Current LOS: 4 Anticipated DC Date: Planned Disposition: Home Primary Insurance: [employer]ARE ADV Discharge Planning Comments: CM RECEIVED ORDER FOR INPATIENT REHAB PRESCREENING. CM MET WITH PT IN ROOM TO DISCUSS DISCHARGE PLANNING AND NEEDS. PT REPORTS LIVING AT HOME INDEPENDENTLY WITH SPOUSE. PT HAS 4 PRONG CANE WITH NO MEDICAL EQUIPMENT PROVIDER PREFERENCE. PT HAS NO OUTSIDE SERVICES ASSISTING IN THE HOME. CM DISCUSSED AVAILABILITY OF HOME HEALTH, REHAB SERVICES AND MEDICAL EQUIPMENT. PT DENIES DISCHARGE NEEDS INITIALLY, SHE DOES NOT WANT TO GO TO REHAB, REPORTS HER SPOUSE WILL PICK HER UP FOR DISCHARGE HOME. IMPORTANT MESSAGE FROM MEDICARE PROVIDED AND EXPLAINED. CM REVIEWED CHART, PT WALKING 100 FEET WITHOUT ASSISTANCE OR DEVICE, THERAPY HAS SIGNED OFF REPORTING NO SKILLED NEED. PT REPORTS IF ANYTHING, SHE WOULD GO TO OUTPATIENT THERAPY. CM CALLED SHREYAS OF [facility] TO SEE IF PT'S INSURANCE WILL COVER THE SERVICES. CM TO CONTINUE TO FOLLOW AND ASSIST. Sourcing Assistant: Sadi Daily DCPIA - Discharge Planning Initial Assessment Updated by [id number]: Sadi Daily on 11/15/18 4:46 pm * Is the patient Alert and Oriented? Yes * How many steps to enter\exit or inside your home? * PCP DR. MADRIGAL * Pharmacy [facility] [address] * Preadmission Environment Home with Family * ADLs Independent * Equipment Cane * Other Equipment NO MEDICAL EQUIPMENT PROVIDER PREFERENCE * List name and contact numbers for known caregivers / representatives who currently or will assist patient after discharge: WARNER JEFFRIES, DAUGHTER, * Verbal permission to speak to the caregivers and representatives has been obtained from the patient. N/A * Community resources currently utilized None * Please name any agencies selected above. NONE * Additional services required to return to the preadmission environment? No * Can the patient safely return to the preadmission environment? Yes * Has this patient been hospitalized within the prior 30 days at any hospital? No Coverage Notice Reviewer: [email or web address] Cecile Daily Notice Issued Date-Time: 11/15/2018 11:45 Notice Type: IM Discharge Notice Notice Delivered To: Patient Relationship to Patient: End Trimmer Name: Delivery Method: HAND - Hand Delivered Angela Days: Prior Verbal Notification: Recipient Understood Notice: Yes Recipient Signature: Yes Med Rec Note Co-signed by Attending: Coverage Notice Comment: Last DP export: 11/15/18 3:49 pm Patient Name: CORNELIO SOLORIO Page [phone] at 1741 All edits/amendments must be made on the electronic document DICTATION DATE: 11/15/181740 OFFICE MACHINE TECHNICIAN: FAITH 11/15/181740 RPT#: [id number] DC DATE: STATUS: ADM IN [facility] [address] [place] [address] END OF REPORT
--- NOTE | 2018-11-15 19:02 | NUR ---
PT SITTING UP IN BED, AAO, WEARING GLASSES, LEFT FOREARM IV NOTED S/L FAMILY AT BEDSIDE, NAME AND DATE PLACED ON BOARD. BEDLOW AND CALL LIGHT IN REACH. CANE IN REACH. PT IWLL CALL FOR ASSIST WHEN NEEDED. WILL CPOC
[2018-11-15 20:00] VITALS: BP 173/79
[2018-11-16] VITALS: BP 168/89
--- NOTE | 2018-11-16 02:32 | NUR ---
PT LAYING ON LEFT SIDE. HOB ABOVE 30, PT AROUSES TO VERBAL STIMULI. PT DENIES ANY NEEDS. NO S/S OF DISTRESS. BEDLOW AND CALL LIGHT IN REACH. WILL CPOC
[2018-11-16 04:30] VITALS: BP 168/82
[2018-11-16 05:34] LABS: BASOPHILS 0 % (0-2); EOSINOPHILS 0 % (0-7); HEMATOCRIT 41.7 % (36.0-48.0); HEMOGLOBIN 14.4 g/dL (12-16); IMMATURE GRANULOCYTES 0.7 % (0-5); LYMPHOCYTES 12.6 % (15-50); MCH 30.3 pg (26.0-34.0); MCHC 34.5 g/dL (31.0-37.0); MCV 87.8 fL (80.0-100.0); MEAN PLATELET VOLUME 10.1 fL (7.4-10.4); MONOCYTES 5.4 % (2-11); NEUTROPHILS 81.3 % (40-80); RBC 4.75 10x6/uL (4.00-5.40); RDW 12.3 % (11.5-14.5); WBC 11.6 10x3/uL (4.8-10.8)
[2018-11-16 05:37] LABS: PLATELET COUNT 344 10x3/uL (130-400)
[2018-11-16 05:41] LABS: CALC OSMOLALITY 285 mosm/kg (275-300); CALCIUM 8.9 mg/dL (8.5-10.1); CARBON DIOXIDE 27.7 mmol/L (21.0-32.0); CHLORIDE - SERUM 103 mmol/L (98-107); CREATININE - SERUM 0.8 mg/dL (0.6-1.3); GLUCOSE 187 mg/dL (74-106); POTASSIUM - SERUM 4.3 mmol/L (3.5-5.1); SODIUM 138 mmol/L (136-145); UREA NITROGEN 27 mg/dL (7-18); eGFR NON AFRICAN AMERICAN 77 mL/min (90-120)
--- NOTE | 2018-11-16 06:29 | NUR ---
PT FSBS IS 187 2 UNITS OF INSULIN GIVEN. MORNING GLIPIZIDE GIVEN. PT AROUSED TO VERBAL STIMULI ONCE NURSE WALKED INTO ROOM. PT NOW SITTING UP IN BED. DENIES ANY NEEDS. WILL CPOC
--- NOTE | 2018-11-16 07:20 | NUR ---
RECEIVED BEDSIDE SHIFT REPORT. ASSUMED CARE OF PATIENT. PATIENT SITTING UP IN BED, ALERT/ORIENTED. PATIENT DENIES NEEDS AT THIS TIME. RIGHT SIDED WEAKNESS NOTED AND NORMAL FOR THIS PATIENT. CALL LIGHT WITHIN REACH. RESP EVEN AND UNLABORED. SR ON TELEMETRY.
[2018-11-16 08:35] VITALS: BP 149/76
--- NOTE | 2018-11-16 11:46 | NUR ---
MEDICATED FOR PAIN AT THIS TIME. NO DISTRESS.
[2018-11-16 11:54] VITALS: BP 149/73
--- NOTE | 2018-11-16 12:04 | NUR ---
FSBS 254. 6 UNITS HUMULIN INSULIN ADMINISTERED PER SLIDING SCALE. NO DISTRESS.
--- NOTE | 2018-11-16 13:01 | NUR ---
1230 20 GAUGE IV REMOVED FROM LEFT FOREARM. CATHETER TIP INTACT. NO BLEEDING FROM SITE. 2X2 GAUZE APPLIED AND SECURED WITH A BANDAID. 1340 DISCHARGE INSTRUCTIONS PROVIDED TO PATTIENT AND HER . PATIENT VERBALZIED UNDERSTANDING OF ALL INSTUCTIONS PROVIDED. TELEMETRY REMOVED FROM PATIENT. 1255 PATIENT DISCHARGED TO HOME WITH HER . PATIENT LEFT UNIT VIA WHEELCHAIR WITH ALL PERSONAL BELONGINGS. PATIENT IN NO DISTRESS UPON LEAVING UNIT.
--- NOTE | 2018-11-18 11:00 | MORECARE ---
CASE MANAGEMENT DISCHARGE SUMMARY PATIENT: CORNELIO SOLORIO UNIT: [id number] ADM DATE: 11/11/18 AGE: 63 : 57 SEX: F ROOM/BED: D.8467 AUTHOR: MOSES,DOC PHYSICIAN: REFERRING PHYSICIAN: DONNA JONES MD DATE OF SERVICE: 11/18/18 Discharge Plan Patient Name: CORNELIO SOLORIO Facility: [facility]:[place] : 1955 Planned Disposition: Home Anticipated Discharge Date: 11/16/18 Discharge Date: 11/16/2018 Expected LOS: 5 Initial Reviewer: [email or web address] Initial Review Date: 11/11/2018 Generated: 11/18/18 11:59 am Comments DCP- Discharge Planning Updated by [email or web address]: Sadi Daily on 11/15/18 3:[address] Patient Name: CORNELIO SOLORIO Admission Status: ER Accout number: [id number] Admission Date: 11-11-2018 : 1955 Admission Diagnosis:EDEMA, UNSPECIFIED Attending: DONNA JONES Current LOS: 4 Anticipated DC Date: Planned Disposition: Home Primary Insurance: [employer] MEDICARE ADV Discharge Planning Comments: CM RECEIVED ORDER FOR INPATIENT REHAB PRESCREENING. CM MET WITH PT IN ROOM TO DISCUSS DISCHARGE PLANNING AND NEEDS. PT REPORTS LIVING AT HOME INDEPENDENTLY WITH SPOUSE. PT HAS 4 [employer]ONG CANE WITH NO MEDICAL EQUIPMENT PROVIDER PREFERENCE. PT HAS NO OUTSIDE SERVICES ASSISTING IN THE HOME. CM DISCUSSED AVAILABILITY OF HOME HEALTH, REHAB SERVICES AND MEDICAL EQUIPMENT. PT DENIES DISCHARGE NEEDS INITIALLY, SHE DOES NOT WANT TO GO TO REHAB, REPORTS HER SPOUSE WILL PICK HER UP FOR DISCHARGE HOME. IMPORTANT MESSAGE FROM MEDICARE PROVIDED AND EXPLAINED. CM REVIEWED CHART, PT WALKING 100 FEET WITHOUT ASSISTANCE OR DEVICE, THERAPY HAS SIGNED OFF REPORTING NO SKILLED NEED. PT REPORTS IF ANYTHING, SHE WOULD GO TO OUTPATIENT THERAPY. CM CALLED SHREYAS OF [facility] TO SEE IF PT'S INSURANCE WILL COVER THE SERVICES. CM TO CONTINUE TO FOLLOW AND ASSIST. Heater Engineer Helper: Sadi Daily DCPIA - Discharge Planning Initial Assessment Updated by [email or web address]: Sadi Daily on 11/15/18 4:46 pm * Is the patient Alert and Oriented? Yes * How many steps to enter\exit or inside your home? * PCP DR. MADRIGAL * Pharmacy [facility] [address] * Preadmission Environment Home with Family * ADLs Independent * Equipment Cane * Other Equipment NO MEDICAL EQUIPMENT PROVIDER PREFERENCE * List name and contact numbers for known caregivers / representatives who currently or will assist patient after discharge: WARNER JEFFRIES, DAUGHTER, * Verbal permission to speak to the caregivers and representatives has been obtained from the patient. N/A * Community resources currently utilized None * Please name any agencies selected above. NONE * Additional services required to return to the preadmission environment? No * Can the patient safely return to the preadmission environment? Yes * Has this patient been hospitalized within the prior 30 days at any hospital? No Coverage Notice Reviewer: [id number] Cecile Daily Notice Issued Date-Time: 11/15/2018 11:45 Notice Type: IM Discharge Notice Notice Delivered To: Patient Relationship to Patient: Meat Packager Name: Delivery Method: HAND - Hand Delivered Angela Days: Prior Verbal Notification: Recipient Understood Notice: Yes Recipient Signature: Yes Med Rec Note Co-signed by Attending: Coverage Notice Comment: Last DP export: 11/15/18 4:41 pm Patient Name: CORNELIO SOLORIO Page [id number] at 1100 All edits/amendments must be made on the electronic document DICTATION DATE: 11/18/18 1059 SPINDLE MAKER: FAITH 11/18/18 1059 RPT#: [id number] DC DATE:11/16/18 STATUS: DIS IN [facility] [address] [place] [address] END OF REPORT
--- NOTE | 2018-11-18 11:06 | MORECARE ---
CASE MANAGEMENT DISCHARGE SUMMARY PATIENT: CORNELIO SOLORIO UNIT: [id number] ADM DATE: 11/11/18 AGE: 63 : 57 SEX: F ROOM/BED: D.2491 AUTHOR: MOSESDOC PHYSICIAN: REFERRING PHYSICIAN: DONNA JONES MD DATE OF SERVICE: 11/18/18 Discharge Plan Patient Name: CORNELIO SOLORIO Facility: [facility]:[place] : 1955 Planned Disposition: Home Anticipated Discharge Date: 11/16/18 Discharge Date: 11/16/2018 Expected LOS: 5 Initial Reviewer: [email or web address] Initial Review Date: 11/11/2018 Generated: 11/18/18 12:06 pm Comments DCP- Discharge Planning Updated by [email or web address]: Sadi Daily on 11/18/18 10:[address] Patient Name: CORNELIO SOLORIO Encounter No: [id number] : 1955 Primary Insurance: WELL[employer] MEDICARE ADV Anticipated DC Date: 11-16-2018 Planned Disposition: Home DCP follow-up note: CM REVIEWED CHART, PT DISCHARGED HOME OVER WEEKEND. THERE WERE NO PHYSICIAN ORDERS ENTERED FOR CM ASSISTANCE IN SETTING UP EQUIPMENT OR SERVICES. THERE WERE NO THERAPY SERVICES ARRANGED BY CM PRIOR TO PT'S DISCHARGE HOME. PT WAS DISCHARGED HOME TO FOLLOW UP WITH PRIMARY DOCTOR. NATHAN Torre DCP- Discharge Planning Updated by [email or web address]: Sadi Daily on 11/15/18 3:[address] Patient Name: CORNELIO SOLORIO Admission Status: ER Accout number: [id number] Admission Date: 11-11-2018 : 1955 Admission Diagnosis:EDEMA, UNSPECIFIED Attending: DONNA JONES Current LOS: 4 Anticipated DC Date: Planned Disposition: Home Primary Insurance: WELLCARE MEDICARE ADV Discharge Planning Comments: CM RECEIVED ORDER FOR INPATIENT REHAB PRESCREENING. CM MET WITH PT IN ROOM TO DISCUSS DISCHARGE PLANNING AND NEEDS. PT REPORTS LIVING AT HOME INDEPENDENTLY WITH SPOUSE. PT HAS 4 [employer] [place] WITH NO MEDICAL EQUIPMENT PROVIDER PREFERENCE. PT HAS NO OUTSIDE SERVICES ASSISTING IN THE HOME. CM DISCUSSED AVAILABILITY OF HOME HEALTH, REHAB SERVICES AND MEDICAL EQUIPMENT. PT DENIES DISCHARGE NEEDS INITIALLY, SHE DOES NOT WANT TO GO TO REHAB, REPORTS HER SPOUSE WILL PICK HER UP FOR DISCHARGE HOME. IMPORTANT MESSAGE FROM MEDICARE PROVIDED AND EXPLAINED. CM REVIEWED CHART, PT WALKING 100 FEET WITHOUT ASSISTANCE OR DEVICE, THERAPY HAS SIGNED OFF REPORTING NO SKILLED NEED. PT REPORTS IF ANYTHING, SHE WOULD GO TO OUTPATIENT THERAPY. CM CALLED SHREYAS OF [facility] TO SEE IF PT'S INSURANCE WILL COVER THE SERVICES. CM TO CONTINUE TO FOLLOW AND ASSIST. Evp Managing Director: Sadi Daily DCPIA - Discharge Planning Initial Assessment Updated by [email or web address]: Sadi Daily on 11/15/18 4:46 pm * Is the patient Alert and Oriented? Yes * How many steps to enter\exit or inside your home? * PCP DR. MADRIGAL * Pharmacy [facility] [address] * Preadmission Environment Home with Family * ADLs Independent * Equipment Cane * Other Equipment NO MEDICAL EQUIPMENT PROVIDER PREFERENCE * List name and contact numbers for known caregivers / representatives who currently or will assist patient after discharge: WARNER JEFFRIES, DAUGHTER, * Verbal permission to speak to the caregivers and representatives has been obtained from the patient. N/A * Community resources currently utilized None * Please name any agencies selected above. NONE * Additional services required to return to the preadmission environment? No * Can the patient safely return to the preadmission environment? Yes * Has this patient been hospitalized within the prior 30 days at any hospital? No Coverage Notice Reviewer: [id number] - Sadi Dialy Notice Issued Date-Time: 11/15/2018 11:45 Notice Type: IM Discharge Notice Notice Delivered To: Patient Relationship to Patient: Silviculturist Name: Delivery Method: HAND - Hand Delivered Angela Days: Prior Verbal Notification: Recipient Understood Notice: Yes Recipient Signature: Yes Med Rec Note Co-signed by Attending: Coverage Notice Comment: Last DP export: 11/18/18 10:00 am Patient Name: CORNELIO SOLORIO Page [id number] at 1106 All edits/amendments must be made on the electronic document DICTATION DATE: 11/18/18 1106 HVAC LEAD: FAITH 11/18/18 110 RPT#: [id number] DC DATE:11/16/18 STATUS: DIS IN [facility] [address] [place] [address] END OF REPORT
== END 2018-11-16 13:00 | disposition home or self-care (01) | DRG 56 ==
LOC: D.ER 06:53 → D.M2 10:11 → D.EDHOLD 10:11 → D.M2 11:31
PROVIDERS: Emergency Medicine; Internal Medicine Hematology & Oncology; ADMIT Internal Medicine Nephrology; ATTEND Internal Medicine Nephrology
DX: A81.2 Progressive multifocal leukoencephalopathy (principal); I63.81 Other cerebral infarction due to occlusion or stenosis of small artery; G93.6 Cerebral edema; N17.9 Acute kidney failure, unspecified; G81.91 Hemiplegia, unspecified affecting right dominant side; I10 Essential (primary) hypertension; E11.9 Type 2 diabetes mellitus without complications; I25.10 Atherosclerotic heart disease of native coronary artery without angina pectoris; M79.7 Fibromyalgia; M50.223 Other cervical disc displacement at C6-C7 level; Z86.73 Personal history of transient ischemic attack (TIA), and cerebral infarction without residual deficits

== ENCOUNTER 2019-03-28 06:00 | Emergency (ER) | payer MEDICARE, MEDICAID ==
[~2019-03-28] VITALS: Ht 167.6 cm; Wt 71.8 kg
[~2019-03-28 06:00] MED LIST changes: +LISINOPRIL2.5 MG PO; +ZANAFLEX4 MG PO
[2019-03-28 06:06] VITALS: Ht 167.6 cm; Wt 71.8 kg
[2019-03-28 07:14] LABS: BASOPHILS 0.4 % (0-2); EOSINOPHILS 3.5 % (0-7); HEMATOCRIT 38.9 % (36.0-48.0); HEMOGLOBIN 13.4 g/dL (12-16); IMMATURE GRANULOCYTES 0.1 % (0-5); LYMPHOCYTES 21.6 % (15-50); MCH 30.6 pg (26.0-34.0); MCHC 34.4 g/dL (31.0-37.0); MCV 88.8 fL (80.0-100.0); MEAN PLATELET VOLUME 9.7 fL (7.4-10.4); MONOCYTES 5.7 % (2-11); NEUTROPHILS 68.7 % (40-80); RBC 4.38 10x6/uL (4.00-5.40); RDW 11.9 % (11.5-14.5); WBC 7.8 10x3/uL (4.8-10.8)
[2019-03-28 07:27] LABS: ALBUMIN 3.7 g/dL (3.4-5.0); ALKALINE PHOSPHATASE 36 U/L (46-116); ALT (SGPT) 33 U/L (10-68); BILIRUBIN - TOTAL 0.19 mg/dL (0.2-1.3); CALC OSMOLALITY 287 mosm/kg (275-300); CARBON DIOXIDE 26.3 mmol/L (21.0-32.0); CHLORIDE - SERUM 106 mmol/L (98-107); CREATININE - SERUM 0.9 mg/dL (0.6-1.3); GLUCOSE 165 mg/dL (74-106); POTASSIUM - SERUM 4.4 mmol/L (3.5-5.1); PROTEIN - SERUM 6.9 g/dL (6.4-8.2); SODIUM 141 mmol/L (136-145); UREA NITROGEN 20 mg/dL (7-18); eGFR NON AFRICAN AMERICAN 67 mL/min (90-120)
[2019-03-28 07:34] LABS: PLATELET COUNT 241 10x3/uL (130-400)
[2019-03-28 07:39] LABS: CKMB 0.8 U/L (0.0-3.6); CREATINE KINASE 51 UL (21-215); MAGNESIUM - SERUM 1.8 mg/dL (1.8-2.4); THYROID STIMULATING HORMONE 1.16 uIU/mL (0.36-3.74); TROPONIN-I < 0.017 ng/mL (0.000-0.060)
[2019-03-28 07:40] LABS: C-REACTIVE PROTEIN < 0.2 mg/dL (0.0-0.9)
[2019-03-28 07:53] LABS: APTT 28.2 SECONDS (22.8-39.4); PROTIME 12.7 SECONDS (11.6-15.0)
[2019-03-28 12:21] VITALS: BP 110/67
== END 2019-03-28 12:13 | disposition home or self-care (01) ==
LOC: D.ER 06:00
PROVIDERS: Emergency Medicine
DX: R51 Headache (principal); I10 Essential (primary) hypertension; R20.2 Paresthesia of skin

== ENCOUNTER 2019-04-30 09:00 | Outpatient (CLI) | payer MEDICARE, MEDICAID ==
[2019-03-28 06:06] VITALS: BMI 25.5
== END 2019-04-30 10:00 | disposition home or self-care (01) ==
LOC: D.MAMMO 09:00
PROVIDERS: ATTEND Nurse Practitioner Family
DX: Z12.31 Encounter for screening mammogram for malignant neoplasm of breast (principal)

== ENCOUNTER → 2019-11-26 07:38 | Outpatient (CLI) | payer MEDICARE, MEDICAID ==
[2019-03-28 06:06] VITALS: BMI 25.5
== END | disposition home or self-care (01) ==
LOC: D.CT 07:38
PROVIDERS: ATTEND Family Medicine
DX: R93.89 Abnormal findings on diagnostic imaging of other specified body structures (principal)

== ENCOUNTER 2021-03-18 13:15 | Outpatient (CLI) | payer MEDICARE, MEDICAID ==
[2019-03-28 06:06] VITALS: BMI 25.5
== END 2021-03-18 23:59 | disposition home or self-care (01) ==
LOC: D.MAMMO 13:15
PROVIDERS: ATTEND Family Medicine
DX: Z12.31 Encounter for screening mammogram for malignant neoplasm of breast (principal)